=== PATIENT | female | born 1980 | race Caucasian/White ===

== ENCOUNTER 2021-02-04 23:38 | Inpatient (IN) | payer BC ==
[~2021-02-04] VITALS: Ht 162.6 cm; Wt 68.0 kg
--- NOTE | 2021-02-04 23:38 | NUR ---
PT TRASNFERRED FROM EMS GURNEY TO ER BED VIA [facility]
[2021-02-04 23:45] VITALS: BP 179/72
[2021-02-04] MEDS ORDERED: ATROPINE 0.4 MG/ML VIAL IVP ONE (23:45)
[2021-02-04] MEDS ORDERED: NACL 0.9% 1,000 ML IV ONE (23:45)
[2021-02-04] MEDS ORDERED: ONDANSETRON 4 MG/2 ML VIAL IVP ONE (23:45)
--- NOTE | 2021-02-04 23:45 | NUR ---
BIBA TO BED 11 WITH C/O VOMITING ALL DAY. HR = 44 - 48, SINUS BRADYCARDIA. DR. SMITH AT BEDSIDE FOR EXAM
[2021-02-04 23:59] LABS: HEMATOCRIT 39.2 % (36-48); HEMOGLOBIN 13.2 g/dL (12.0-16.0); LYMPHOCYTES # (AUTO) 0.9 K/uL (2.5-16.5); LYMPHOCYTES % (AUTO) 4.8 % (20.5-51.1); MEAN CORPUSCULAR HEMOGLOBIN 32 pg (27-31); MEAN CORPUSCULAR HGB CONC 34 g/dL (33-37); MEAN CORPUSCULAR VOLUME 95.2 fL (80-94); MONOCYTES # (AUTO) 0.4 K/uL (0.8-1.0); MONOCYTES % (AUTO) 1.9 % (1.7-9.3); NEUTROPHILS # (AUTO) 16.9 K/uL (1.8-7.7); NEUTROPHILS % (AUTO) 93.3 % (42.2-75.2); PLATELET COUNT (AUTO) 378 K/uL (140-450); RED BLOOD CELL COUNT(AUTO) 4.12 MIL/uL (4.20-5.40); RED CELL DISTRIBUTION WIDTH 13.8 % (11.6-13.7); WHITE BLOOD COUNT (AUTO) 18.1 K/uL (4.8-10.8)
[2021-02-04] MEDS ORDERED: ATROPINE 1 MG/10 ML SYR IVP ONE (23:59)
[2021-02-05 00:14] LABS: ALBUMIN 4.2 g/dL (3.4-5.0); CARBON DIOXIDE 22.7 mmol/L (21-32); CREATININE 0.9 mg/dL (0.6-1.3); POTASSIUM 4.7 mmol/L (3.5-5.1); TOTAL BILIRUBIN 0.8 mg/dL (0.0-1.0)
[2021-02-05] MEDS ORDERED: traMADol 50 MG TAB PO ONE (00:55)
[2021-02-05] MEDS ORDERED: NACL 0.9% 1,000 ML IV SCH (01:00)
--- NOTE | 2021-02-05 01:00 | NUR ---
MEDICATED FOR PAIN THEN IMMEDIATELY VOMITED
[2021-02-05] MEDS ORDERED: diphenhydrAMINE 50 MG/ML VIAL IVP ONE (01:15)
[2021-02-05] MEDS ORDERED: MORPHINE SULFATE 4 MG/ML SYR IVP ONE (01:15)
[2021-02-05 01:38] LABS: APPEARANCE,URINE CLEAR (CLEAR); BILIRUBIN,URINE NEGATIVE (NEGATIVE); BLOOD, URINE 2+ (NEGATIVE); COLOR,URINE YELLOW (YELLOW); LEUKOCYTE ESTERASE ,URINE NEGATIVE (NEGATIVE); NITRITE, URINE NEGATIVE (NEGATIVE); UGLUCOSE NEGATIVE (NEGATIVE)
[2021-02-05 01:42] LABS: WBC,URINE 0-5 /HPF (0-5)
[2021-02-05 01:46] LABS: BARBITURATE, URINE NEGATIVE ng/ml (NEG <=200); BENZODIAZEPINE, URINE NEGATIVE ng/mL (NEG <=200); CANNABINOID, URINE POSITIVE ng/mL (NEG <=50); COCAINE, URINE NEGATIVE ng/mL (NEG <=300); OPIATE, URINE NEGATIVE ng/mL (NEG <=2000); PHENCYCLIDINE SCREEN,URINE NEGATIVE ng/mL (NEG <=25)
--- NOTE | 2021-02-05 02:30 | NUR ---
PT REMAINS WITH VERY POOR VENOUS ACCESS. 22G TO RIGHT HAND CONTINUES TO INFUSE WELL. DR SMITH AT BEDSIDE ATTEMPTING IV ACCESS
--- NOTE | 2021-02-05 03:50 | NUR ---
RETURNED FROM CT
[2021-02-05] MEDS ORDERED: ONDANSETRON 4 MG/2 ML VIAL IVP ONE (04:20)
[2021-02-05] MEDS ORDERED: MORPHINE SULFATE 2 MG/ML SYR IVP ONE (04:20)
[2021-02-05] MEDS ORDERED: CEFEPIME 2,000 MG in DEXTROSE 5% 100 ML IV ONE (04:25)
[2021-02-05] MEDS ORDERED: VANCOMYCIN 1,000 MG in DEXTROSE 5% 250 ML IV ONE (04:25)
[2021-02-05] MEDS ORDERED: VANCOMYCIN 1,000 MG VIAL ONE (04:41)
[2021-02-05] MEDS ORDERED: CEFEPIME 2,000 MG VIAL IV ONE (04:42)
[2021-02-05] MEDS ORDERED: DEXT 5% / NACL 0.9% 500 ML IV SCH (05:05)
[2021-02-05] MEDS ORDERED: HYDROmorphone PFS 2 MG/ML SYR IVP SCH (05:05)
[2021-02-05] MEDS ORDERED: HYDROmorphone 1 MG/ML AMP ONE (05:20)
--- NOTE | 2021-02-05 05:30 | NUR ---
ADMIT ORDERS RECEIVED FROM DR. JAVIER
--- NOTE | 2021-02-05 05:30 | NUR ---
MEDICATED WITH DILAUDID AND ZOFRAN AT THIS TIME FOR C/O PAIN RATED 10/10
[2021-02-05] MEDS: ONDANSETRON 4 MG/2 ML VIAL IVP PRN (07:27)
--- NOTE | 2021-02-05 07:30 | NUR ---
REPORT RECEIVED FROM ZEE BESS FOR CONTINUITY OF CARE.
[2021-02-05] MEDS ORDERED: DEXT 5% /NACL 0.9% 1,000 ML IV SCH (07:50)
--- NOTE | 2021-02-05 08:00 | NUR ---
Patient will be admitted to care of DR JAVIER. Admited to TELEMETRY. Will go to room 104B. Belongings list completed. Report to REGINA BESS.
[2021-02-05] MEDS ORDERED: DOCUSATE SODIUM 100 MG GELCAP PO PRN (08:50)
[2021-02-05] MEDS ORDERED: guaiFENesin DM 200/20 MG-10 ML 10 ML UDC PO PRN (08:50)
[2021-02-05] MEDS ORDERED: ACETAMINOPHEN 325 MG TAB PO PRN (08:50)
[2021-02-05] MEDS ORDERED: POTASSIUM CHLORIDE 10 MEQ TABER PO PRN (08:50)
[2021-02-05] MEDS ORDERED: ZOLPIDEM 5 MG TAB PO PRN (08:50)
[2021-02-05] MEDS ORDERED: PANTOPRAZOLE 40 MG TABEC PO SCH (09:00)
[2021-02-05] MEDS: PANTOPRAZOLE 40 MG INJ VIAL IVP SCH (09:00)
[2021-02-05] MEDS: LEVOFLOXACIN 750 MG/D5W PREMIX 150 ML IV SCH (09:05)
[2021-02-05] MEDS: DEXT 5% /NACL 0.9% 1,000 ML IV SCH ×2 (09:08→16:50)
[2021-02-05] MEDS: MORPHINE SULFATE 2 MG/ML SYR IVP PRN ×2 (09:14→13:31)
--- NOTE | 2021-02-05 09:26 | NUR ---
PATIENT COMPLAINS OF ABDOMINAL PAIN, MORPHINE GIVEN AT THIS TIME. PROTONIX PO NOT GIVEN PATIENT UNABLE TO TAKE DUE TO FEELING NAUSEATED. WILL CONTINUE TO MONITOR.
[2021-02-05 09:51] LABS: CHOL/HDL RATIO 3.5 (1-4.5); FREE T4 (FREE THYROXINE) 1.19 ng/dL (0.76-1.46); MAGNESIUM 1.9 mg/dL (1.8-2.4); PHOSPHORUS 2.7 mg/dL (2.5-4.9); THYROID STIMULATING HORMONE 1.91 uIU/mL (0.34-3.74)
[2021-02-05 10:11] LABS: PROTHROMBIN TIME 10.4 secs (10.8-13.4)
--- NOTE | 2021-02-05 10:11 | NUR ---
SCHEDULED MEDICATIONS DUE GIVEN. WILL CONTINUE TO MONITOR.
--- NOTE | 2021-02-05 13:31 | NUR ---
PT COMPLAINING OF SEVERE ABDOMINAL PAIN. GAVE PRN PAIN MEDICATION PER MD ORDER. PT IS STABLE. WILL MONITOR AND REASSESS PAIN IN ONE HOUR.
[2021-02-05] MEDS: METOCLOPRAMIDE 10 MG/2 ML INJ VIAL IVP SCH (16:30)
[2021-02-05] MEDS: AMITRIPTYLINE 25 MG TAB PO SCH (21:00)
[2021-02-06] MEDS: DEXT 5% /NACL 0.9% 1,000 ML IV SCH ×3 (00:50→16:50)
--- NOTE | 2021-02-06 03:19 | NUR ---
PATIENT AWAKE ALERT RESTING IN BED C/O OF NAUSEA BUT NO NAUSEA NOTED C/O OF PAIN GENERAL BUT APPEAR TO BE IN ACUTE PAIN. PATIENT TRIES TO MAKE HER SELF EMESIS. BUT NOTHING COMES UP. APPEARS TO ME PATIENT IS DRUG SEEKING. GIVEN MORPHINE 2 MG 2200,AND ZOFRAN 4MG IVP 2200. PATIENT HEART RATE GOES DOWN TO 30 S. HELD PAIN MED TIL HERAT RATE ABOVE 50.
--- NOTE | 2021-02-06 04:09 | NUR ---
PATIENT DID NOT GET ELAVIL 25 MG PO COMPUTOR DOWN WAS NOT ON PRINTED MEDICATION SHEETS.WAS ORDERED ON 02/05/21 AT 1600WAS TO BE GIVEN AT 2100.
[2021-02-06] MEDS: ONDANSETRON 4 MG/2 ML VIAL IVP PRN ×2 (04:50→22:21)
--- NOTE | 2021-02-06 04:51 | NUR ---
PATIENT COMPLAINT OF N/V, RN ASSIGNED WAS ATTENDING/ CLEANING OTHER PATIENTS, I VOLUNTEERED TO HELP GIVE ANTI NAUSEA MEDICATION, ONDANSETRON 4 MG/ 2 ML IV PUSH WELL TOLERATED BY THE PATIENT.
--- NOTE | 2021-02-06 07:10 | NUR ---
RECEIVED REPORT FROM JEEP MECHANIC NURSE FOR CONTINUITY OF CARE. PATIENT IS IN BED AT THIS TIME. RESPIRATIONS ARE EVEN AND UNLABORED. NO SIGNS OF DISTRESS NOTED. PATIENT IS ON CLEAR LIQUID DIET PER DR. ORDER. PATIENT HAS IV TO RIGHT HAND, 22G INFUSING D5NS AT 125ML/HR. PATIENT IS ABLE TO VERBALIZE NEEDS TO STAFF. CALL LIGHT IS WITHIN REACH. BED IN LOWEST POSITION. ALL SAFETY MEASURES IN PLACE.
[2021-02-06 07:13] LABS: BASOPHILS % (AUTO) 0.1 % (0.0-2.0); HEMATOCRIT 37.7 % (36-48); HEMOGLOBIN 12.4 g/dL (12.0-16.0); LYMPHOCYTES # (AUTO) 1.6 K/uL (2.5-16.5); LYMPHOCYTES % (AUTO) 9.8 % (20.5-51.1); MEAN CORPUSCULAR HEMOGLOBIN 32 pg (27-31); MEAN CORPUSCULAR HGB CONC 33 g/dL (33-37); MEAN CORPUSCULAR VOLUME 96.3 fL (80-94); MONOCYTES # (AUTO) 0.7 K/uL (0.8-1.0); MONOCYTES % (AUTO) 4.5 % (1.7-9.3); NEUTROPHILS # (AUTO) 14.2 K/uL (1.8-7.7); NEUTROPHILS % (AUTO) 85.6 % (42.2-75.2); PLATELET COUNT (AUTO) 268 K/uL (140-450); RED BLOOD CELL COUNT(AUTO) 3.92 MIL/uL (4.20-5.40); WHITE BLOOD COUNT (AUTO) 16.7 K/uL (4.8-10.8)
[2021-02-06 07:31] LABS: ANION GAP 12.4 (8-16); CARBON DIOXIDE 23.4 mmol/L (21-32); CREATININE 0.7 mg/dL (0.6-1.3); POTASSIUM 3.8 mmol/L (3.5-5.1)
[2021-02-06 08:00] VITALS: BP 142/95
[2021-02-06] MEDS: METOCLOPRAMIDE 10 MG/2 ML INJ VIAL IVP SCH ×3 (08:35→15:53)
[2021-02-06] MEDS: PANTOPRAZOLE 40 MG INJ VIAL IVP SCH (08:35)
[2021-02-06] MEDS: HYDROcodone/APAP 7.5/325 MG 1 TAB PO PRN ×2 (08:35→15:53)
--- NOTE | 2021-02-06 08:35 | NUR ---
ALL SCHEDULED MEDICATIONS ADMINISTERED. PATIENT TOLERATED WELL. PATIENT COMPLAIN OF PAIN, 6/10. ADMINISTERED PAIN MEDICATION. WILL CONTINUE TO MONITOR.
--- NOTE | 2021-02-06 09:35 | NUR ---
DID ROUNDS ON PATIENT, REASSESSED PAIN LEVEL. PATIENT IN BED SLEEPING. NO COMPLAINTS OF PAIN. WILL CONTINUE TO MONITOR.
[2021-02-06 10:06] LABS: T4 (THYROXINE) 9.1 ug/dL (4.5-12.0)
--- NOTE | 2021-02-06 11:40 | NUR ---
DID ROUNDS ON PATIENT. PATIENT IN BED RESTING AT THIS TIME. RESPIRATIONS EVEN AND UNLABORED. NO SIGNS OF DISTRESS NOTED. WILL CONTINUE TO MONITOR.
[2021-02-06 12:00] VITALS: BP 111/59
--- NOTE | 2021-02-06 13:12 | NUR ---
ROUNDED ON PATIENT. PATIENT IN BED RESTING. RESPIRATIONS ARE EVEN AND UNLABORED. NO SIGNS OF DISTRESS AT THIS TIME. PATIENT REQUEST MORE WATER AND JUICE. BROUGHT PATIENT WATER AND JUICE. NO COMPLAINTS OF NAUSEA AT THIS TIME. WILL CONTINUE TO MONITOR.
--- NOTE | 2021-02-06 13:50 | NUR ---
DC [age] YRS OLD FEMALE PATIENT WAS ADMITTED FROM HOME WITH A DX OF ABD PAIN , LEUKOCYTOSIS. PATIENT HAS A HX OF CHRONIC BACK PAIN DUE TO BACK INJURY . CXR SHOWED MINIMAL BIBASILAR SUBSEGMENTAL ATELECTASIS. LUMBAR AND THORACIC SPINE CT SHOWED NO FRACTURE. ADMINISTERED IVF, IV ABX LEVAQUIN AND CONTINUE HOME MEDS. DC PLAN TO GO HOME WHEN STABLE CM TO FOLLOW
--- NOTE | 2021-02-06 15:23 | NUR ---
PATIENT COMPLAIN OF PAIN TO RIGHT UPPER ARM IV SITE. IV SITE SLIGHTLY PINK WITH SOME SWELLING. DC IV SITE TO RIGHT UPPER ARM. IV CATHETER INTACT. PATIENT STILL HAS IV TO RIGHT HAND, IT IS PATENT AND INTACT. WILL CONTINUE TO MONITOR.
--- NOTE | 2021-02-06 15:53 | NUR ---
PATIENT COMPLAIN OF PAIN TO BACK AND ABDOMEN. PATIENT RATED PAIN 5/10. MEDICATED PATIENT. WILL CONTINUE TO MONITOR.
[2021-02-06 16:00] VITALS: BP 147/67
--- NOTE | 2021-02-06 16:53 | NUR ---
RE-ASSESSED PATIENT FOR PAIN. PATIENT SLEEPING AT THIS TIME. NO SIGNS OF DISTRESS NOTED. WILL CONTINUE TO MONITOR.
--- NOTE | 2021-02-06 19:20 | NUR ---
RECEIVED BEDSIDE REPORT FROM AM SHIFT RN. SAFETY MEASURES IN PLACE, CALL LIGHT WITHIN REACH. PT SLEEPING. PT HAS A RIGHT HAND 22G, SKIN INTACT. ON ROOM AIR. PT STABLE. WILL CONTINUE TO MONITOR.
--- NOTE | 2021-02-06 19:21 | NUR ---
ENDORSED PATIENT TO PEST CONTROL SERVICE REPRESENTATIVE NURSE FOR CONTINUITY OF CARE. PATIENT IS STABLE.
[2021-02-06 20:00] VITALS: BP 150/63
[2021-02-06] MEDS: AMITRIPTYLINE 25 MG TAB PO SCH (20:16)
--- NOTE | 2021-02-06 20:32 | NUR ---
ADMINISTERED PTS MED. TOLERATED WELL. EDUCATED PATIENT ON THE PURPOSE OF MEDICATION AND ADVERSE EFFECTS. PT VERBALIZED UNDERSTANDING. PT STABLE. WILL CONTINUE TO MONITOR
[2021-02-06] MEDS: MORPHINE SULFATE 2 MG/ML SYR IVP PRN (22:22)
--- NOTE | 2021-02-06 22:57 | NUR ---
PT HAS A NEW IV SITE ON LEFT FOREARM 22G. PATENT, ASYMPTOMATIC. PT STABLE. WILL CONTINUE TO MONITOR.
[2021-02-07] VITALS: BP 137/60
--- NOTE | 2021-02-07 00:30 | NUR ---
PATIENT IS ASLEEP, NO SIGNS OF DISTRESS. PT STABLE. WILL CONTINUE TO MONITOR.
[2021-02-07] MEDS: DEXT 5% /NACL 0.9% 1,000 ML IV SCH ×3 (00:50→17:14)
[2021-02-07 04:00] VITALS: BP 150/72
[2021-02-07] MEDS: HYDROcodone/APAP 7.5/325 MG 1 TAB PO PRN ×3 (05:45→20:58)
[2021-02-07] MEDS: ONDANSETRON 4 MG/2 ML VIAL IM/IVP PRN ×2 (05:45→20:58)
--- NOTE | 2021-02-07 05:53 | NUR ---
PROVIDED PT WITH ZOFRAN FOR NAUSEA AND PAIN MED. PT IS STABLE. WILL CONTINUE TO MONITOR.
[2021-02-07 07:03] LABS: BASOPHILS % (AUTO) 0.4 % (0.0-2.0); EOSINOPHILS # (AUTO) 0.1 K/uL (0-0.4); EOSINOPHILS % (AUTO) 0.5 % (0.0-4.0); HEMATOCRIT 34.8 % (36-48); HEMOGLOBIN 11.7 g/dL (12.0-16.0); LYMPHOCYTES # (AUTO) 2.8 K/uL (2.5-16.5); LYMPHOCYTES % (AUTO) 26.5 % (20.5-51.1); MEAN CORPUSCULAR HEMOGLOBIN 33 pg (27-31); MEAN CORPUSCULAR HGB CONC 34 g/dL (33-37); MEAN CORPUSCULAR VOLUME 96.7 fL (80-94); MONOCYTES # (AUTO) 0.8 K/uL (0.8-1.0); MONOCYTES % (AUTO) 7.8 % (1.7-9.3); NEUTROPHILS # (AUTO) 6.9 K/uL (1.8-7.7); NEUTROPHILS % (AUTO) 64.8 % (42.2-75.2); PLATELET COUNT (AUTO) 239 K/uL (140-450); RED CELL DISTRIBUTION WIDTH 13.8 % (11.6-13.7); WHITE BLOOD COUNT (AUTO) 10.7 K/uL (4.8-10.8)
[2021-02-07] MEDS: METOCLOPRAMIDE 10 MG/2 ML INJ VIAL IVP SCH ×3 (07:06→17:14)
--- NOTE | 2021-02-07 07:10 | NUR ---
PASSED ON BEDSIDE ENDORSEMENT TO AM SHIFT RN. PT TUYET.
--- NOTE | 2021-02-07 07:11 | NUR ---
RECEIVED BEDSIDE REPORT FROM ENVIRONMENTAL SCIENCE PROGRAM DIRECTOR RN FOR CONTINUITY OF CARE. PATIENT IS RESTING IN BED. NO S/S OF DISTRESS. RESPIRATIONS ARE EVEN AND UNLABORED ON ROOM AIR. ALL SAFETY PRECAUTIONS IN PLACE.
[2021-02-07 07:17] LABS: ANION GAP 10.7 (8-16); CARBON DIOXIDE 25.7 mmol/L (21-32); CREATININE 0.8 mg/dL (0.6-1.3); POTASSIUM 3.4 mmol/L (3.5-5.1)
[2021-02-07 08:00] VITALS: BP 124/63
[2021-02-07] MEDS: LEVOFLOXACIN 750 MG/D5W PREMIX 150 ML IV SCH (09:54)
[2021-02-07] MEDS: PANTOPRAZOLE 40 MG INJ VIAL IVP SCH (09:54)
[2021-02-07] MEDS: MORPHINE SULFATE 2 MG/ML SYR IVP PRN (09:56)
--- NOTE | 2021-02-07 10:00 | NUR ---
ADMINISTERED SCHEDULED MEDICATIONS. PATIENT VERBALIZED UNDERSTANDING. PATIENT ALSO COMPLAINED OF 6/10 PAIN. ADMINISTERED PRN PAIN MEDICATION PER MD ORDER. ALL SAFETY PRECAUTIONS IN PLACE.
--- NOTE | 2021-02-07 12:05 | NUR ---
ADMINISTERED SCHEDULED MEDICATIONS. PATIENT COMPLAINS OF SOME NAUSEA BUT NO VOMITING. PATIENT VERBALIZED UNDERSTANDING FOR MEDICATION ADMINISTERED. ALL SAFETY PRECAUTIONS IN PLACE.
--- NOTE | 2021-02-07 15:10 | NUR ---
PATIENT COMPLAINED OF 6/10 LOWER BACK PAIN. ADMINISTERED PRN PAIN MEDICATION PER MD ORDER. PATIENT'S POTASSIUM IS 3.4. COVERED WITH 40 MEQ KDUR PER MD ORDER. PATIENT VERBALIZED UNDERSTANDING. ALL SAFETY PRECAUTIONS IN PLACE.
[2021-02-07 16:00] VITALS: BP 122/59
--- NOTE | 2021-02-07 17:07 | NUR ---
PATIENT IS RESTING IN BED. NO S/S OF DISTRESS. ALL SAFETY PRECAUTIONS IN PLACE.
--- NOTE | 2021-02-07 19:35 | NUR ---
ENDORSED PATIENT TO MOLDER FEEDER RN FOR CONTINUITY OF CARE. PATIENT IS STABLE.
--- NOTE | 2021-02-07 19:37 | NUR ---
RECEIVED BEDSIDE REPORT FROM AM SHIFT RN. PT HAS A LEFT FOREARM 22G. IVF D5NS 125ML/HR. SAFETY MEASURES IN PLACE, CALL LIGHT WITHIN REACH. PT STABLE. WILL CONTINUE TO MONITOR.
[2021-02-07 20:00] VITALS: BP 134/69
[2021-02-07] MEDS: AMITRIPTYLINE 25 MG TAB PO SCH (20:57)
--- NOTE | 2021-02-07 20:58 | NUR ---
PATIENT RECEIVED SCHEDULED MED WELL PRN MEDS ZOFRAN AND NORCO. PT STATED HAVING BACK PAIN RADIATING TO THE LEGS. MEDS WERE TOLERATED WELL. PROVIDED EDUCATION ON MEDICATION PURPOSE AND ADVERSE EFFECTS. PT VERBALIZED UNDERSTANDING.
--- NOTE | 2021-02-07 22:40 | NUR ---
PATIENT IS ASLEEP, NO SIGNS OF DISTRESS. PT STABLE. WILL CONTINUE TO MONITOR
[2021-02-08] MEDS: DEXT 5% /NACL 0.9% 1,000 ML IV SCH ×4 (00:50→18:29)
--- NOTE | 2021-02-08 02:45 | NUR ---
PT IS ASLEEP. NO SIGNS OF DISTRESS. PT STABLE. OBSERVATION OF CHEST RISE AND FALL. WILL CONTINUE TO MONITOR.
[2021-02-08 04:00] VITALS: BP 116/57
[2021-02-08] MEDS: METOCLOPRAMIDE 10 MG/2 ML INJ VIAL IVP SCH ×3 (06:44→18:28)
[2021-02-08 06:59] LABS: BASOPHILS # (AUTO) 0.1 K/uL (0.00-0.22); EOSINOPHILS # (AUTO) 0.1 K/uL (0-0.4); EOSINOPHILS % (AUTO) 1.5 % (0.0-4.0); HEMATOCRIT 32.9 % (36-48); HEMOGLOBIN 11.2 g/dL (12.0-16.0); LYMPHOCYTES # (AUTO) 2.4 K/uL (2.5-16.5); LYMPHOCYTES % (AUTO) 38.3 % (20.5-51.1); MEAN CORPUSCULAR HEMOGLOBIN 33 pg (27-31); MEAN CORPUSCULAR HGB CONC 34 g/dL (33-37); MEAN CORPUSCULAR VOLUME 96.3 fL (80-94); MONOCYTES # (AUTO) 0.5 K/uL (0.8-1.0); MONOCYTES % (AUTO) 8.1 % (1.7-9.3); NEUTROPHILS # (AUTO) 3.2 K/uL (1.8-7.7); NEUTROPHILS % (AUTO) 51.1 % (42.2-75.2); PLATELET COUNT (AUTO) 196 K/uL (140-450); RED BLOOD CELL COUNT(AUTO) 3.41 MIL/uL (4.20-5.40); RED CELL DISTRIBUTION WIDTH 13.4 % (11.6-13.7); WHITE BLOOD COUNT (AUTO) 6.2 K/uL (4.8-10.8)
[2021-02-08] MEDS: HYDROcodone/APAP 7.5/325 MG 1 TAB PO PRN ×3 (07:06→18:28)
--- NOTE | 2021-02-08 07:30 | NUR ---
RECEIVED PT ON BED AAOX4. NO SOB NOTED. NO C/O PAIN AT THIS TIME. IV TO LT UPPER ARM PATENT AND INTACT. CHEST CLEAR, ABDOMEN SOFT, BOWEL SOUNDS PRESENT. NO EDEMA NOTED. INSTRUCTED PT TO CALL FOR ASSISTANCE, CALL LIGHT WITHIN REACH, PT VERBALIZED UNDERSTANDING.
--- NOTE | 2021-02-08 07:41 | NUR ---
PASSED ON BEDSIDE REPORT TO AM SHIFT RN. PT STABLE
[2021-02-08 08:00] VITALS: BP 132/72
[2021-02-08 08:14] LABS: ANION GAP 13.5 (8-16); CARBON DIOXIDE 23.5 mmol/L (21-32); CREATININE 0.8 mg/dL (0.6-1.3)
[2021-02-08] MEDS: PANTOPRAZOLE 40 MG INJ VIAL IVP SCH (08:59)
--- NOTE | 2021-02-08 10:21 | NUR ---
02/08/21 RD INITIAL ASSESSMENT COMPLETED PLEASE REFER TO NUTRITION ASSESSMENT UNDER CARE ACTIVITY FOR ESTIMATED NUTRITIONAL NEEDS. 1.CONTINUE FULL LIQUID DIET TOLERATED 2. ADVANCE TO BRAT DIET, THEN TO REGULAR DIET TOLERATED 3. RD TO FOLLOW-UP 3-5 DAYS, MODERATE RISK ISABEL SHEIKH, RD
--- NOTE | 2021-02-08 11:45 | NUR ---
PT HAD A SHOWER. ACTIVITY TOLERATED WELL.
--- NOTE | 2021-02-08 13:00 | NUR ---
PT SEEN BY PHYSICAL THERAPY WITH RECOMMENDATION FOR FWW AND SHOWER CHAIR.
[2021-02-08 16:00] VITALS: BP 116/64
--- NOTE | 2021-02-08 19:20 | NUR ---
PT RESTING. NO SOB NOTED. NO SIGNS OF PAIN AT THIS TIME. WILL ENDORSE TO NEXT SHIFT NURSE FOR CONTINUITY OF CARE.
--- NOTE | 2021-02-08 19:30 | NUR ---
RECD. RESTING IN BED, AWAKE, A/OX4. RESPIRATION EVEN AND UNLABORED. IV OF D5N2 AT 125 ML/HR INFUSING, LEFT FOREARM G22. INDEPENDENT, AMBULATORY TO THE BR. REMINDED THE NEED TO COLLECT STOOL SAMPLE FOR LAB TEST IF SHE WILL HAVE BM TONIGHT, CONTAINER LEFT AT THE BEDSIDE. TOLERATING FULL LIQUID DIET. MEDICATIONS AND CARE FOR THE SHIFT DISCUSSED WITH PATIENT. VERBALIZED UNDERSTANDING. DENIES PAIN 0/10.
--- NOTE | 2021-02-08 20:00 | NUR ---
Patient's Plan of Care was discussed and reviewed with PLANT MAINTENANCE TECHNICIAN: TONIA RIVERA
[2021-02-08] MEDS: AMITRIPTYLINE 25 MG TAB PO SCH (20:52)
--- NOTE | 2021-02-08 20:52 | NUR ---
RESTING IN BED, WATCHING TV. SCHEDULED MEDICATION ADMINISTERED.
--- NOTE | 2021-02-08 22:53 | NUR ---
UNABLE TO SLEEP, MEDICATED WITH AMBIEN PER MD ORDER. TEACHINGS GIVEN ON OTHER ALTERNATIVE MEASURES THAT PROMOTE SLEEP. VERBALIZED UNDERSTANDING.
--- NOTE | 2021-02-08 23:52 | NUR ---
CHECKED PATIENT, STILL AWAKE IN BED BUT STARTING TO BE SLEEPY. VS STABLE. NO COMPLAINT OF PAIN 0/10.
[2021-02-09] VITALS: BP 108/46
[2021-02-09] MEDS: DEXT 5% /NACL 0.9% 1,000 ML IV SCH ×2 (01:38→08:50)
--- NOTE | 2021-02-09 01:55 | NUR ---
CHECKED ON PATIENT. STABLE AND SLEEPING COMFORTABLY. BREATHING SYMMETRICAL. NO APPARENT S/SX OF ACUTE RESPIRATORY DISTRESS. ALL SAFETY MEASURES IN PLACE. CALL LIGHT WITHIN REACH. WILL CONTINUE TO MONITOR.
--- NOTE | 2021-02-09 03:55 | NUR ---
CHECKED ON PATIENT. STABLE AND COMING OUT OF BR. RECORDED SCHEDULED VITAL SIGNS. WNL. DENIES PAIN 0/10. RESPIRATIONS EVEN AND UNLABORED. ALL SAFETY MEASURES IN PLACE. CALL LIGHT WITHIN REACH. WILL CONTINUE TO MONITOR.
--- NOTE | 2021-02-09 05:40 | NUR ---
ANSWERED CALL LIGHT. PATIENT C/O OF PAIN 12/27 ORIGINATING FROM HIP AREA. NOTIFIED ANA PAULA BESS TO ADMINISTER MORPHINE SULFATE IVP.
[2021-02-09 05:43] VITALS: BP 128/61
[2021-02-09] MEDS: MORPHINE SULFATE 2 MG/ML SYR IVP PRN (05:49)
--- NOTE | 2021-02-09 06:00 | NUR ---
IV INFILTRATED, NEW IV LINE INSERTED BY MARIA ALEJANDRA GOSS AT THE LEFT AC G24.
[2021-02-09] MEDS: METOCLOPRAMIDE 10 MG/2 ML INJ VIAL IVP SCH (06:35)
--- NOTE | 2021-02-09 07:01 | NUR ---
ENDORSED TO MORNING SHIFT REGARDING PATIENT'S BORA. PATIENT IS STABLE.
[2021-02-09 07:09] LABS: BASOPHILS # (AUTO) 0.1 K/uL (0.00-0.22); EOSINOPHILS # (AUTO) 0.2 K/uL (0-0.4); EOSINOPHILS % (AUTO) 2.7 % (0.0-4.0); HEMATOCRIT 32.2 % (36-48); HEMOGLOBIN 10.8 g/dL (12.0-16.0); LYMPHOCYTES # (AUTO) 2.4 K/uL (2.5-16.5); LYMPHOCYTES % (AUTO) 34.6 % (20.5-51.1); MEAN CORPUSCULAR HEMOGLOBIN 33 pg (27-31); MEAN CORPUSCULAR HGB CONC 34 g/dL (33-37); MEAN CORPUSCULAR VOLUME 97.2 fL (80-94); MONOCYTES # (AUTO) 0.4 K/uL (0.8-1.0); MONOCYTES % (AUTO) 6.4 % (1.7-9.3); NEUTROPHILS # (AUTO) 3.8 K/uL (1.8-7.7); NEUTROPHILS % (AUTO) 55.3 % (42.2-75.2); PLATELET COUNT (AUTO) 207 K/uL (140-450); RED BLOOD CELL COUNT(AUTO) 3.31 MIL/uL (4.20-5.40); RED CELL DISTRIBUTION WIDTH 13.7 % (11.6-13.7); WHITE BLOOD COUNT (AUTO) 6.9 K/uL (4.8-10.8)
[2021-02-09 07:30] LABS: ANION GAP 11.8 (8-16); CARBON DIOXIDE 24.1 mmol/L (21-32); CREATININE 0.7 mg/dL (0.6-1.3); POTASSIUM 3.9 mmol/L (3.5-5.1)
--- NOTE | 2021-02-09 07:30 | NUR ---
RECEIVED PT ON BED AAOX4. NO SOB NOTED. NO C/O PAIN AT THIS TIME. IV TO LAC INFILTRATED, PT STATED TO TELL THE DOCTOR TO SWITCH WITH ORAL ABX SINCE THERE'S A PLAN FOR HER TO BE DISCHARGED TODAY. CHEST, DIMINISHED AIR ENTRY TO THE BASES, ABDOMEN SOFT, BOWEL SOUNDS PRESENT. NO EDEMA NOTED. INSTRUCTED PT TO CALL FOR ASSISTANCE, CALL LIGHT WITHIN REACH, PT VERBALIZED UNDERSTANDING.
[2021-02-09 08:00] VITALS: BP 122/62
--- NOTE | 2021-02-09 09:00 | NUR ---
FULL LIQUID TOLERATED WELL BY PT, NO N&V NOTED.
[2021-02-09] MEDS ORDERED: levoFLOXacin 750 MG TAB PO SCH (09:30)
[2021-02-09] MEDS ORDERED: PANTOPRAZOLE 40 MG TABEC PO SCH (09:50)
[2021-02-09] MEDS ORDERED: METOCLOPRAMIDE 10 MG TAB PO SCH (11:30)
[2021-02-09] MEDS ORDERED: AMIT25TA29 PO (11:51)
[2021-02-09] MEDS ORDERED: METO10TA11 PO (11:51)
[2021-02-09] MEDS ORDERED: PANT40EC56 PO (11:51)
[2021-02-09] MEDS ORDERED: DOCU-299 PO (11:51)
[2021-02-09] MEDS ORDERED: METR500T1 PO (11:51)
[2021-02-09] MEDS ORDERED: FLU VACCINE QS2021-22 0.5 ML SYR IMVAC ONE (12:15)
--- NOTE | 2021-02-09 13:30 | NUR ---
DISCHARGE INSTRUCTIONS GIVEN TO PT WHICH VERBALIZED FULL UNDERSTANDING OF THE INSTRUCTIONS GIVEN AND THE NEED TO FF UP WITH OWN PCP IN5 DAYS. PT IS ALSO AWARE THAT HER NEW SCRIPTS WERE SENT TO HER PREFERRED PHARMACY. ARM BANDS AND IV REMOVED, CANULA TIP INTACT.
--- NOTE | 2021-02-09 13:45 | NUR ---
PT WHEELED TO THE FRONT LOBBY IN STABLE CONDITION. NO SOB NOTED, NO C/O PAIN AT THIS TIME. PT IS D/C HOME WITH .
== END 2021-02-09 16:15 | disposition home or self-care (01) | DRG 872 ==
LOC: MED 23:38 → MTU 02-05 05:15
PROVIDERS: ADMIT Family Medicine; ATTEND Family Medicine
DX: A41.9 Sepsis, unspecified organism (principal); N39.0 Urinary tract infection, site not specified; E87.1 Hypo-osmolality and hyponatremia; F17.210 Nicotine dependence, cigarettes, uncomplicated; F12.90 Cannabis use, unspecified, uncomplicated; K31.9 Disease of stomach and duodenum, unspecified; E86.0 Dehydration; K52.9 Noninfective gastroenteritis and colitis, unspecified; M51.37 Other intervertebral disc degeneration, lumbosacral region; M47.896 Other spondylosis, lumbar region; G62.9 Polyneuropathy, unspecified; G89.29 Other chronic pain; Z87.828 Personal history of other (healed) physical injury and trauma; Z90.49 Acquired absence of other specified parts of digestive tract
CPT/HCPCS: 36415; 71045; 72128; 72131; 80048; 80053; 80305; 81001; 81025; 82150; 83036; 83605; 83690; 83735; 83880; 84100; 84436; 84439; 84443; 84479; 84484; 85025; 85610; 85730; 87081; 87086; 93005; 96361; 96365; 96367; 96375; 96376; 97116; 97163-GP; 99285; C9113; J0461; J0692; J1170; J1200; J1956; J2270; J2405; J2765; J3370; J8597; Q9967

== ENCOUNTER 2021-09-10 21:08 | Emergency (ER) | payer BC, OTHER ==
[~2021-09-10] VITALS: Ht 177.8 cm; Wt 74.8 kg
[~2021-09-10 21:08] MED LIST: AMIT25TA29 PO; DOCU-299 PO; METO10TA11 PO; METR500T1 PO; PANT40EC56 PO
--- NOTE | 2021-09-10 21:30 | NUR ---
40/F BIB SELF C/O BUTTOCK REDNESS AND SWELLING. PATIENT STATED THAT IT FEELS IRRITATED AND SHARP EVERYTIME SHE IS SITS OR WIPES. PAIN 10/10 AND LOCALIZED AT THIS TIME. PATIENT AMBULATES WITH ASSISTIVE DEVICE BECAUSE OF HX OF BACK PAIN. PATIENT STATED SHE TOOK GABAPENTIN PRIOR TO ARRIVAL. PATIENT IS AAOX4. RR EVEN AND UNLABORED. SKIN WARM TO TOUCH. DENIES N/V/D/C/SOB/CP/COUGH AT THIS TIME. NKA
[2021-09-10 21:56] VITALS: BP 155/86
[2021-09-10 22:40] VITALS: BP 138/89
[2021-09-10] MEDS ORDERED: MORPHINE SULFATE 10 MG/ML VIAL IM ONE (22:40)
[2021-09-10] MEDS ORDERED: LIDOCAINE/EPI 1% 1:100000 20 ML VIAL INJ ONE (22:45)
[2021-09-10 22:57] LABS: APPEARANCE,URINE CLEAR (CLEAR); BILIRUBIN,URINE NEGATIVE (NEGATIVE); BLOOD, URINE 3+ (NEGATIVE); COLOR,URINE YELLOW (YELLOW); LEUKOCYTE ESTERASE ,URINE 1+ (NEGATIVE); NITRITE, URINE NEGATIVE (NEGATIVE); UGLUCOSE NEGATIVE (NEGATIVE)
[2021-09-10] MEDS ORDERED: AMOXIL/CLAVULANATE 875/125 MG 1 TAB PO ONE (23:00)
[2021-09-10] MEDS ORDERED: SULFAMETH/TRIMETH DS 800/160MG 1 TAB PO ONE (23:00)
[2021-09-10 23:31] LABS: RBC,URINE TOO NUMEROUS TO COUN /HPF (0-5)
[2021-09-11] MEDS ORDERED: ACET-8386 PO (00:12)
[2021-09-11] MEDS ORDERED: AMOX-1230 PO (00:12)
[2021-09-11] MEDS ORDERED: SULF-59 PO (00:12)
[2021-09-11] MEDS ORDERED: TRAM50TA3 PO (00:19)
--- NOTE | 2021-09-11 00:39 | NUR ---
Patient discharged with v/s stable. Written and verbal after care instructions given and explained. Patient alert, oriented and verbalized understanding of instructions. Wheel Chair Assisted with steady gait. All questions addressed prior to discharge. ID band removed. Patient advised to follow up with PMD. Rx of NORCO 5/325, AMOX-CLAV, BACTRIM given. Patient educated on indication of medication including possible reaction and side effects. Opportunity to ask questions provided and answered.
== END 2021-09-11 00:39 | disposition home or self-care (01) ==
LOC: MED 21:08
DX: L05.01 Pilonidal cyst with abscess (principal); Z88.1 Allergy status to other antibiotic agents
CPT/HCPCS: 10080; 81001; 81025; 87070; 87075; 87086; 87205; 96372; 99284; J2001; J2270

== ENCOUNTER 2021-12-05 13:57 | Emergency (ER) | payer OTHER ==
[~2021-12-05] VITALS: Ht 175.3 cm; Wt 77.1 kg
[~2021-12-05 13:57] MED LIST changes: +AMOX-1230 PO; +SULF-59 PO; +TRAM50TA3 PO
[2021-12-05] MEDS ORDERED: ONDANSETRON 4 MG/2 ML VIAL IVP ONE (14:10)
[2021-12-05] MEDS ORDERED: NACL 0.9% 1,000 ML IV ONE (14:10)
[2021-12-05] MEDS ORDERED: MORPHINE SULFATE 4 MG/ML SYR IVP ONE (14:10)
[2021-12-05 14:34] LABS: APPEARANCE,URINE SL CLOUDY (CLEAR); BILIRUBIN,URINE 2+ (NEGATIVE); BLOOD, URINE 3+ (NEGATIVE); COLOR,URINE YELLOW (YELLOW); LEUKOCYTE ESTERASE ,URINE NEGATIVE (NEGATIVE); NITRITE, URINE NEGATIVE (NEGATIVE); UGLUCOSE NEGATIVE (NEGATIVE)
--- NOTE | 2021-12-05 14:34 | NUR ---
PT RECIVED MORPHINE 2 MG. PAIN WENT FROM A 10/10 TO A 6/10
--- NOTE | 2021-12-05 14:37 | NUR ---
41 YO F BIBA W C/O OF BACK AND ABD PAIN 01/26. PT CANNOT STATE WHAT CAUSES HER PAIN BUT STATES SHES HAD IT BEFORE. PT NAUSEATED AND VOMITING. USES CANE TO AMBULATE. A/O X4. PMH: NEUROPATHY, SIATICA, DEPRESSION, ANXIETY, INSOMNIA MEDS: LORAZAPAM, REGLAN, GABAPENTIN, AMITRIPTYLINE, ZOLPIDIM
[2021-12-05 14:47] LABS: ANION GAP 13.9 (8-16); CARBON DIOXIDE 22.1 mmol/L (21-32); CREATININE 0.9 mg/dL (0.6-1.3); TOTAL BILIRUBIN 0.4 mg/dL (0.0-1.0)
[2021-12-05] MEDS ORDERED: KETOROLAC 30 MG/ML VIAL IVP ONE (14:50)
[2021-12-05 14:59] LABS: URINE AMORPHOUS URATE 2+ /HPF (None Seen); WBC,URINE 0-5 /HPF (0-5)
[2021-12-05 15:00] VITALS: BP 119/84
[2021-12-05 15:06] LABS: HEMATOCRIT 40.1 % (36-48); HEMOGLOBIN 13.3 g/dL (12.0-16.0); MEAN CORPUSCULAR HEMOGLOBIN 31 pg (27-31); MEAN CORPUSCULAR HGB CONC 33 g/dL (33-37); MEAN CORPUSCULAR VOLUME 94.1 fL (80-94); PLATELET COUNT (AUTO) 384 K/uL (140-450); RED BLOOD CELL COUNT(AUTO) 4.26 MIL/uL (4.20-5.40); RED CELL DISTRIBUTION WIDTH 13.6 % (11.6-13.7); WHITE BLOOD COUNT (AUTO) 17.2 K/uL (4.8-10.8)
[2021-12-05 16:04] LABS: LYMPHOCYTES % (MANUAL) 5 % (20-46)
[2021-12-05] MEDS ORDERED: LID5T TP (16:35)
[2021-12-05] MEDS ORDERED: BEN10 PO (16:35)
--- NOTE | 2021-12-05 16:50 | NUR ---
Patient discharged with v/s stable. Written and verbal after care instructions given and explained. Patient alert, oriented and verbalized understanding of instructions. Ambulatory with steady gait. All questions addressed prior to discharge. ID band removed. Patient advised to follow up with PMD. Rx of BENTYL,LIDODERM PATCH given. Patient educated on indication of medication including possible reaction and side effects. Opportunity to ask questions provided and answered.
[2021-12-05 16:51] VITALS: BP 128/89
[2021-12-05] MEDS ORDERED: METOCLOPRAMIDE 10 MG/2 ML INJ VIAL IM ONE (17:05)
== END 2021-12-05 16:50 | disposition home or self-care (01) ==
LOC: MED 13:57
DX: S39.012A Strain of muscle, fascia and tendon of lower back, initial encounter (principal); R10.84 Generalized abdominal pain; Z88.1 Allergy status to other antibiotic agents; Z98.890 Other specified postprocedural states; X58.XXXA Exposure to other specified factors, initial encounter; Y93.89 Activity, other specified; Y92.89 Other specified places as the place of occurrence of the external cause; Y99.8 Other external cause status
CPT/HCPCS: 36415; 74176; 80053; 81001; 81025; 83690; 84702; 85025; 87086; 96361; 96374; 96375; 99284; J1885; J2270; J2405; J7030